=== PATIENT | female | born 1990 | race Caucasian/White ===

== ENCOUNTER 2017-01-03 23:02 | Inpatient (IN) | payer MEDICAID ==
[~2017-01-03] VITALS: Ht 165.1 cm; Wt 62.1 kg
[2017-01-03] MEDS ORDERED: SODIUM CHLORIDE 0.9% 1,000 ML IV ONE (23:09)
[2017-01-03 23:22] LABS: HEMATOCRIT 41.4 % (34.6-47.8); HEMOGLOBIN 13.9 g/dL (11.7-16.4); WHITE BLOOD COUNT 5.6 x10^3/uL (3.4-10)
[2017-01-03] MEDS ORDERED: CHARCOAL/SORBITOL 50 GM/240 ML ONE (23:23)
[2017-01-03] MEDS ORDERED: ONDANSETRON 2MG/ML, 2ML ONE (23:23)
[2017-01-03] MEDS ORDERED: SODIUM CHLORIDE 0.9% 1,000ML IVBOLUS ONE (23:30)
[2017-01-03] MEDS ORDERED: ONDANSETRON 2MG/ML, 2ML IVPush ONE (23:30)
[2017-01-03] MEDS ORDERED: CHARCOAL/SORBITOL 50 GM/240 ML PO ONE (23:30)
[2017-01-03 23:31] LABS: ASPARTATE AMINO TRANSFERASE 41 U/L (15-37); BLOOD UREA NITROGEN 7 mg/dL (7-18)
[2017-01-03 23:37] LABS: ACETAMINOPHEN < 2 mcg/mL (10-30)
[2017-01-04] MEDS ORDERED: PROMETHAZINE 25 MG/ML, 1ML IM PRN (00:30)
[2017-01-04] MEDS ORDERED: ACETAMINOPHEN 325 MG TABLET PO PRN (00:30)
[2017-01-04] MEDS ORDERED: ONDANSETRON 2MG/ML, 2ML IVPush PRN (00:30)
[2017-01-04] MEDS ORDERED: SODIUM CHLORIDE 0.9% 1,000ML IVBOLUS ONE (00:30)
[2017-01-04] MEDS ORDERED: PRAZ1CAP2 PO (00:31)
[2017-01-04] MEDS ORDERED: CITA20TA5 PO (00:31)
[2017-01-04] MEDS ORDERED: LIDOCAINE 1%, 20ML ONE (00:48)
[2017-01-04 02:10] VITALS: BP 95/69
[2017-01-04] MEDS: SODIUM CHLORIDE 0.9% 1,000 ML IV SCH ×4 (02:29→17:39)
[2017-01-04 04:09] VITALS: BP 87/49
[2017-01-04] MEDS ORDERED: NOREPINEPHRINE 4 MG in SODIUM CHLORIDE 0.9% 246 ML IV PRN (04:30)
[2017-01-04 17:47] LABS: DAU SCREEN DISCLAIMER
[2017-01-04 19:00] VITALS: BP 138/94
[2017-01-05 02:00] VITALS: BP 146/97
[2017-01-05 06:48] LABS: BLOOD UREA NITROGEN 4 mg/dL (7-18)
[2017-01-05 06:52] LABS: ASPARTATE AMINO TRANSFERASE 31 U/L (15-37)
[2017-01-05 07:37] VITALS: BP 142/98
[2017-01-05] MEDS ORDERED: LORazepam 0.5MG TABLET PO PRN (09:00)
[2017-01-05] MEDS ORDERED: LORazepam 1MG TABLET PO PRN ×2 (09:00)
[2017-01-05 14:53] VITALS: BP 115/77
[2017-01-05] MEDS: LORazepam 1MG TABLET PO PRN ×2 (16:53→22:49)
[2017-01-05 20:23] VITALS: BP 125/85
[2017-01-06 02:22] VITALS: BP 121/88
[2017-01-06 07:50] VITALS: BP 127/86
[2017-01-06] MEDS: LORazepam 1MG TABLET PO PRN (09:18)
[2017-01-06 12:37] VITALS: BP 126/82
[2017-01-06 13:06] VITALS: BP 117/83
[2017-01-06 20:00] VITALS: BP 135/90
[2017-01-07 08:00] VITALS: BP 134/93
[2017-01-07 19:33] VITALS: BP 122/84
[2017-01-08 09:00] VITALS: BP 123/85
[2017-01-08] MEDS: OMEGA-3/FISH OIL CAPSULE PO SCH (12:07)
[2017-01-08] MEDS: MULTIVITAMIN 1 TABLET PO SCH (12:25)
[2017-01-08] MEDS ORDERED: ONDANSETRON 2MG/ML, 2ML IVPush PRN (15:30)
[2017-01-08] MEDS ORDERED: ACETAMINOPHEN 325 MG TABLET PO PRN (15:30)
[2017-01-08] MEDS ORDERED: PROMETHAZINE 25 MG/ML, 1ML IM PRN (15:30)
[2017-01-08 19:42] VITALS: BP 126/85
[2017-01-09 08:00] VITALS: BP 101/71
[2017-01-09] MEDS: MULTIVITAMIN 1 TABLET PO SCH (08:23)
[2017-01-09] MEDS: OMEGA-3/FISH OIL CAPSULE PO SCH (08:24)
[2017-01-09 19:27] VITALS: BP 104/74
[2017-01-10 07:29] VITALS: BP 100/64
[2017-01-10] MEDS: OMEGA-3/FISH OIL CAPSULE PO SCH (08:45)
[2017-01-10] MEDS: MULTIVITAMIN 1 TABLET PO SCH (08:45)
[2017-01-10 19:44] VITALS: BP 109/70
[2017-01-11 08:00] VITALS: BP 104/71
[2017-01-11] MEDS: OMEGA-3/FISH OIL CAPSULE PO SCH (08:46)
[2017-01-11] MEDS: MULTIVITAMIN 1 TABLET PO SCH (08:46)
[2017-01-11 19:06] VITALS: BP 108/72
[2017-01-11] MEDS ORDERED: PRAZOSIN 1 MG CAPSULE PO SCH (21:00)
[2017-01-11] MEDS: LORazepam 1MG TABLET PO PRN (21:53)
[2017-01-12 08:00] VITALS: BP 112/81
[2017-01-12] MEDS: OMEGA-3/FISH OIL CAPSULE PO SCH (08:18)
[2017-01-12] MEDS: MULTIVITAMIN 1 TABLET PO SCH (08:18)
[2017-01-12] MEDS: LORazepam 1MG TABLET PO PRN (08:29)
[2017-01-12] MEDS ORDERED: CITALOPRAM 20 MG TABLET PO SCH (09:00)
== END 2017-01-12 11:50 | disposition home or self-care (01) | DRG 917 ==
LOC: ED 01-04 00:15 → EDIP 01-04 00:30 → CCU 01-04 01:48 → 5SO 01-04 18:34 → 4WST 01-05 17:42 → 3E 01-06 13:01
PROVIDERS: ADMIT Internal Medicine; ATTEND Internal Medicine
PROC: 02H633Z Insertion of Infusion Device into Right Atrium, Percutaneous Approach (ICD-10-PCS; principal; 2017-01-04)
PROC: B244ZZZ Ultrasonography of Right Heart (ICD-10-PCS; 2017-01-04)
DX: T44.6X2A Poisoning by alpha-adrenoreceptor antagonists, intentional self-harm, initial encounter (principal); G92 Toxic encephalopathy; F33.2 Major depressive disorder, recurrent severe without psychotic features; I95.2 Hypotension due to drugs; G31.2 Degeneration of nervous system due to alcohol; F10.239 Alcohol dependence with withdrawal, unspecified; T43.222A Poisoning by selective serotonin reuptake inhibitors, intentional self-harm, initial encounter; F10.229 Alcohol dependence with intoxication, unspecified; F17.200 Nicotine dependence, unspecified, uncomplicated; F43.10 Post-traumatic stress disorder, unspecified
CPT/HCPCS: 36415; 71010; 80053; 80307; 80329; 83735; 84703; 85025; 87081; 87324; 93005; 96361; 96374; J2405; G0378; G0480; J7030; J7050

== ENCOUNTER 2017-06-02 15:01 | Emergency (ER) | payer MEDICAID ==
[~2017-06-02] VITALS: Ht 167.6 cm; Wt 59.1 kg
[~2017-06-02 15:01] MED LIST: CITA20TA5 PO; PRAZ1CAP2 PO
[2017-06-02 15:04] VITALS: BP 133/88
[2017-06-02] MEDS ORDERED: IBUPROFEN 200 MG TABLET ONE (15:54)
[2017-06-02] MEDS ORDERED: IBUPROFEN 200 MG TABLET PO ONE (16:00)
== END 2017-06-02 17:06 | disposition home or self-care (01) ==
LOC: ED 16:00
DX: S82.52XA Displaced fracture of medial malleolus of left tibia, initial encounter for closed fracture (principal); F17.210 Nicotine dependence, cigarettes, uncomplicated; F32.9 Major depressive disorder, single episode, unspecified; W10.8XXA Fall (on) (from) other stairs and steps, initial encounter; Y93.89 Activity, other specified; Y92.098 Other place in other non-institutional residence as the place of occurrence of the external cause; Y99.8 Other external cause status
CPT/HCPCS: 29515